=== PATIENT | male | born 1985 | race Caucasian/White ===

== ENCOUNTER 2021-10-03 00:01 | Emergency (ER) | payer SELFPAY ==
[2021-10-03 01:26] LABS: HEMOGLOBIN 15.2 gm/dl (14.0-17.5); RED BLOOD COUNT 5.09 M/UL (4.20-5.50); WHITE BLOOD COUNT 8.5 K/UL (4.5-11.0)
[2021-10-03 01:52] LABS: BUN/CREATININE RATIO 15 (0-10)
== END 2021-10-03 02:36 | disposition home or self-care (01) ==
LOC: ER1 00:01
PROVIDERS: Family Medicine
DX: R07.9 Chest pain, unspecified (principal); M54.50 Low back pain, unspecified
CPT/HCPCS: 71046; 72110; 80053; 82550; 82553; 84484; 85025; 93005; 99285